=== PATIENT | female | born 1965 | race Caucasian/White ===

== ENCOUNTER 2020-02-09 09:45 | Outpatient (CLI) | payer BC, OTHER, SELFPAY ==
[2020-02-09 10:08] LABS: Add Urine Microscopic? NO; Appearance Urine Clear (Clear); Bilirubin Urine Negative (Negative); Blood Urine Negative (Negative); Color Urine Yellow (Yellow); Glucose Urine UA Negative (Negative); Ketones Urine Negative (Negative); Leukocyte Esterase Ur Negative LEU/UL (Negative); Nitrate Urine Negative (Negative); Protein Urine Negative (Negative); Urobilinogen Urine 0.2 mg/dL (0.2-1.0); pH Urine 6.5 (5.0-8.0)
[2020-02-09 10:11] LABS: Basophils Absolute Auto 0.02 K/mm3 (0.00-0.10); Basophils Percent Auto 0.3 % (0.0-1.0); Eosinophils Absolute Auto 0.11 K/mm3 (0.02-0.50); Eosinophils Percent Auto 1.8 % (1.0-6.0); Hemoglobin 13.8 g/dL (12.0-15.0); Immature Granulocyte Absolute 0.02 K/mm3 (0.00-0.00); Immature Granulocyte Percent A 0.3 % (0.0-0.0); Lymphocytes Absolute Auto 1.49 K/mm3 (1.10-4.50); Lymphocytes Percent Auto 24.8 % (18.0-42.0); Mean Corpuscular HGB Conc 32.9 g/dL (32.0-36.0); Mean Corpuscular Hemoglobin 30.6 pg (27.0-31.0); Mean Corpuscular Volume 93.1 fL (78.0-102.0); Mean Platelet Volume 9.9 fl (9.2-11.8); Monocytes Absolute Auto 0.37 K/mm3 (0.10-0.90); Monocytes Percent Auto 6.2 % (2.0-11.0); Neutrophils Percent Auto 66.6 % (50.0-70.0); Platelet Count Result 187 K/mm3 (150-420); Red Blood Count 4.51 M/mm3 (4.20-5.40); Red Cell Distribution Width 12.4 % (11.6-14.4)
[2020-02-09 11:04] LABS: Alanine Aminotransferase 11 U/L (14-59); Albumin Level 4.4 g/dL (3.4-5.0); Alkaline Phosphatase 67 U/L (46-116); Anion Gap 13 mmol/L (8-16); Aspartate Amino Transferase 25 U/L (15-37); Bilirubin,Total 0.9 mg/dL (0.00-1.00); Blood Urea Nitrogen 20 mg/dL (7-18); Calcium 8.8 mg/dL (8.5-10.1); Carbon Dioxide 29 mmol/L (21-32); Chloride 116 mmol/L (98-108); Cholesterol 201 mg/dL (0-200); Estimated Glomerular Filt Rate 58; Glucose 91 mg/dL (70-99); HDL Direct 87 mg/dL (40-60); LDL Cholesterol Calculated 102 mg/dL (<130); Osmolality Calculated 328 mOsm/kg (285-295); Potassium 4.4 mmol/L (3.5-5.1); Sodium 158 mmol/L (136-145); Thyroid Stimulating Hormone 1.33 uIU/mL (0.36-3.74); Total Protein 7.2 g/dL (6.4-8.2); Triglycerides 61 mg/dL (0-150)
== END 2020-02-09 09:46 | disposition home or self-care (01) ==
PROVIDERS: PCP Internal Medicine; Visit Provider Internal Medicine
DX: Z00.00 Encounter for general adult medical examination without abnormal findings (principal)
CPT/HCPCS: 36415; 80053; 80061; 81003; 84443; 85025

== ENCOUNTER 2020-02-17 09:31 | Outpatient (CLI) | payer BC, OTHER, SELFPAY ==
--- NOTE | ~2020-02-17 | US_ITS ---
EXAMINATION: US pelvic complete w TV DATE: 02/17/2020 12:54 INDICATION: Postmenopausal bleeding Comparison:No prior studies for comparison. TECHNIQUE: Multiple transabdominal and endovaginal sonographic images of the pelvis performed. FINDINGS: The uterus measures 6 x 2.4 x 4.6 cm. The endometrial complex measures 3.5 mm. The right ovary measures 2 x 0.8 x 0.8 cm and the left ovary measures 2.5 x 1.4 x 1 cm. There are sm all follicles in each ovary. There is no free fluid in the pelvis. There are no abnormal masses seen on either side. IMPRESSION: 1. Unremarkable pelvic ultrasound. Reviewed, dictated and finalized at location B.
== END 2020-02-17 09:32 | disposition home or self-care (01) ==
LOC: CHSIMG 09:33
PROVIDERS: PCP Internal Medicine; Visit Provider Internal Medicine
DX: N95.0 Postmenopausal bleeding (principal)
CPT/HCPCS: 76830; 76856

== ENCOUNTER 2020-03-03 12:02 | Outpatient (CLI) | payer BC, OTHER, SELFPAY ==
[2020-03-03 12:26] LABS: Add Urine Microscopic? NO; Appearance Urine Clear (Clear); Bilirubin Urine Negative (Negative); Blood Urine Negative (Negative); Color Urine Yellow (Yellow); Glucose Urine UA Negative (Negative); Ketones Urine Negative (Negative); Leukocyte Esterase Ur Negative (Negative); Nitrate Urine Negative (Negative); Protein Urine Negative (Negative); Specific Grav Ur >= 1.030 (1.010-1.020); Urobilinogen Urine 0.2 mg/dL (0.2-1.0)
[2020-03-03 12:40] LABS: INR 1.2; Partial Thromboplastin Time 31.7 SEC (22.3-31.6); Prothrombin Time 12.6 Seconds (9.64-11.0)
[2020-03-03 14:07] LABS: Alanine Aminotransferase 24 U/L (14-59); Alkaline Phosphatase 72 U/L (46-116); Anion Gap 8 mmol/L (8-16); Aspartate Amino Transferase 24 U/L (15-37); Bilirubin,Total 0.8 mg/dL (0.00-1.00); Blood Urea Nitrogen 20 mg/dL (7-18); Calcium 8.9 mg/dL (8.5-10.1); Carbon Dioxide 27 mmol/L (21-32); Chloride 104 mmol/L (98-108); Estimated Glomerular Filt Rate 59; Glucose 92 mg/dL (70-99); Osmolality Calculated 290 mOsm/kg (285-295); Sodium 139 mmol/L (136-145)
== END 2020-03-03 12:03 | disposition home or self-care (01) ==
LOC: CHSLAB 12:04
PROVIDERS: PCP Internal Medicine; Visit Provider Internal Medicine
DX: E87.0 Hyperosmolality and hypernatremia (principal); T14.8XXA Other injury of unspecified body region, initial encounter
CPT/HCPCS: 36415; 80053; 81003; 85610; 85730

== ENCOUNTER 2020-06-26 08:06 | Outpatient (CLI) | payer BC, OTHER, SELFPAY ==
--- NOTE | ~2020-06-26 | MM_ITS ---
EXAMINATION: MM screening yajaira BI w tay HISTORY: Screening TECHNIQUE: Craniocaudal and mediolateral oblique 3-D tomosynthesis images were obtained and synthetic 2-D images were generated. CAD analysis was submitted and interpreted. COMPARISON: 06/24/2019 BREAST PARENCHYMAL COMPOSITION: The breasts are extremely dense, which lowers the sensitivity of mamm ography. FINDINGS: There is no evidence of suspicious mass, calcification, or architectural distortion to sugg est malignancy in either breast. There has been no suspicious interval change. IMPRESSION: 1. No mammographic evidence of malignancy. 2. Recommend routine screening mammography in one year. BI-RADS Category 1: Negative Reviewed, dictated and finalized at location A. WORKER WIRE FENCE ERECTOR
== END 2020-06-26 08:07 | disposition home or self-care (01) ==
LOC: CHSIMG 08:08
PROVIDERS: PCP Internal Medicine; Visit Provider Obstetrics & Gynecology
DX: Z12.31 Encounter for screening mammogram for malignant neoplasm of breast (principal)
CPT/HCPCS: 77063; 77067

== ENCOUNTER 2020-08-01 08:06 | Outpatient (CLI) | payer BC, OTHER, SELFPAY ==
[2020-08-04 21:12] LABS: Lupus dRVVT 1:1 Mix Interpreta Not Indicated; Lupus dRVVT Confirmation Negative (Negative); Lupus dRVVT Screen 49 sec (<=45); PTT-LA Screen 39 sec (<=40)
[2020-08-05 22:12] LABS: Anti Cardio Antibody IgM <12 MPL (<=12); Anti Cardiolipin Antibody IgA <11 APL (<=11); Anti Cardiolipin Antibody IgG <14 GPL (<=14)
[2020-08-06 08:29] LABS: Reference Lab Test Name FACTOR II ACTIVITY
[2020-08-06 08:30] LABS: Reference Lab Test Result 105
== END 2020-08-01 08:07 | disposition home or self-care (01) ==
LOC: CHSLAB 08:09
PROVIDERS: PCP Internal Medicine; Visit Provider Internal Medicine
DX: D68.9 Coagulation defect, unspecified (principal)
CPT/HCPCS: 36415; 81241; 85210; 85260; 85597; 85613; 85730; 86146; 86147; 86148

== ENCOUNTER 2021-05-15 07:49 | Outpatient (CLI) | payer BC, OTHER, SELFPAY ==
[2021-05-15 08:09] LABS: Basophils Absolute Auto 0.03 K/mm3 (0.00-0.10); Basophils Percent Auto 0.5 % (0.0-1.0); Eosinophils Absolute Auto 0.17 K/mm3 (0.02-0.50); Eosinophils Percent Auto 2.8 % (1.0-6.0); Hematocrit 37.9 % (35.0-49.0); Immature Granulocyte Absolute 0.02 K/mm3 (0.00-0.00); Immature Granulocyte Percent A 0.3 % (0.0-0.0); Lymphocytes Absolute Auto 2.04 K/mm3 (1.10-4.50); Lymphocytes Percent Auto 33.1 % (18.0-42.0); Mean Corpuscular HGB Conc 34.3 g/dL (32.0-36.0); Mean Corpuscular Hemoglobin 30.6 pg (27.0-31.0); Mean Corpuscular Volume 89.2 fL (78.0-102.0); Mean Platelet Volume 9.8 fl (9.2-11.8); Monocytes Percent Auto 6.5 % (2.0-11.0); Neutrophils Absolute Auto 3.5 K/mm3 (1.7-7.2); Neutrophils Percent Auto 56.8 % (50.0-70.0); Platelet Count Result 189 K/mm3 (150-420); Red Blood Count 4.25 M/mm3 (4.20-5.40); Red Cell Distribution Width 11.7 % (11.6-14.4); White Blood Count 6.2 K/mm3 (4.8-10.8)
[2021-05-15 08:14] LABS: Add Urine Microscopic? YES; Appearance Urine Clear (Clear); Bilirubin Urine Negative (Negative); Blood Urine 1+ (Negative); Color Urine Yellow (Yellow); Glucose Urine UA Negative (Negative); Ketones Urine Negative (Negative); Leukocyte Esterase Ur Negative (Negative); Nitrate Urine Negative (Negative); Protein Urine Negative (Negative); Specific Grav Ur >= 1.030 (1.010-1.020); Urobilinogen Urine 0.2 mg/dL (0.2-1.0); pH Urine 5.5 (5.0-8.0)
[2021-05-15 08:19] LABS: Bacteria Urine 1+ /hpf; Mucus Urine Moderate /lpf; RBC Urine 0-2 /hpf (0-2); Squamous Epithelial Cell Urine Moderate /hpf (Few); WBC Urine None seen /hpf (0-3)
[2021-05-15 09:27] LABS: Alanine Aminotransferase 28 U/L (14-59); Albumin Level 3.9 g/dL (3.4-5.0); Alkaline Phosphatase 59 U/L (46-116); Anion Gap 8 mmol/L (8-16); Aspartate Amino Transferase 23 U/L (15-37); Bilirubin,Total 0.8 mg/dL (0.00-1.00); Blood Urea Nitrogen 19 mg/dL (7-18); Calcium 8.9 mg/dL (8.5-10.1); Carbon Dioxide 29 mmol/L (21-32); Chloride 105 mmol/L (98-108); Cholesterol 173 mg/dL (0-200); Estimated Glomerular Filt Rate > 60; Glucose 92 mg/dL (70-99); HDL Direct 73 mg/dL (40-60); LDL Cholesterol Calculated 91 mg/dL (<130); Osmolality Calculated 296 mOsm/kg (285-295); Potassium 3.8 mmol/L (3.5-5.1); Sodium 142 mmol/L (136-145); Thyroid Stimulating Hormone 1.71 uIU/mL (0.36-3.74); Total Protein 6.9 g/dL (6.4-8.2); Triglycerides 45 mg/dL (0-150)
== END 2021-05-15 07:50 | disposition home or self-care (01) ==
LOC: CHSLAB 07:50
PROVIDERS: PCP Internal Medicine; Visit Provider Internal Medicine
DX: Z00.00 Encounter for general adult medical examination without abnormal findings (principal)
CPT/HCPCS: 36415; 80053; 80061; 81001; 84443; 85025

== ENCOUNTER 2021-06-10 07:41 | Outpatient (CLI) | payer BC, OTHER, SELFPAY ==
[2021-06-10 08:35] LABS: CRP < 0.2 mg/dL (0.0-0.9)
== END 2021-06-10 07:42 | disposition home or self-care (01) ==
LOC: CHSLAB 07:45
PROVIDERS: PCP Internal Medicine; Visit Provider Nurse Practitioner Family
DX: R21 Rash and other nonspecific skin eruption (principal); R79.82 Elevated C-reactive protein (CRP)
CPT/HCPCS: 36415; 86038; 86140

== ENCOUNTER 2021-06-19 07:50 | Outpatient (CLI) | payer BC, OTHER, SELFPAY ==
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
== END 2021-06-19 07:51 | disposition home or self-care (01) ==
LOC: CHSLAB 07:53
PROVIDERS: PCP Internal Medicine; Visit Provider Internal Medicine
DX: M54.2 Cervicalgia (principal)
CPT/HCPCS: 72040

== ENCOUNTER 2021-07-02 07:54 | Outpatient (CLI) | payer BC, OTHER, SELFPAY ==
--- NOTE | ~2021-07-02 | MM_ITS ---
EXAMINATION: MM screening yajaira BI w tay HISTORY: Screening TECHNIQUE: Craniocaudal and mediolateral oblique 3-D tomosynthesis images were obtained and synthetic 2-D images were generated. CAD analysis was submitted and interpreted. COMPARISON: Comparison to multiple prior studies sequentially, with oldest reviewed study dated 06/24. BREAST PARENCHYMAL COMPOSITION: The breasts are heterogeneously dense, which may obscure small masses . FINDINGS: There is no evidence of suspicious mass, calcification, or architectural distortion to sugg est malignancy in either breast. There has been no suspicious interval change. IMPRESSION: 1. No mammographic evidence of malignancy. 2. Recommend routine screening mammography in one year. BI-RADS Category 1: Negative Reviewed, dictated and finalized at location A. ASOUND MANAGER
== END 2021-07-02 07:55 | disposition home or self-care (01) ==
LOC: CHSIMG 07:55
PROVIDERS: PCP Internal Medicine; Visit Provider Obstetrics & Gynecology
DX: Z12.31 Encounter for screening mammogram for malignant neoplasm of breast (principal)
CPT/HCPCS: 77063; 77067

== ENCOUNTER 2021-09-14 10:36 | Outpatient (CLI) | payer BC, OTHER, SELFPAY ==
[2021-09-14 10:56] LABS: Basophils Absolute Auto 0.03 K/mm3 (0.00-0.10); Basophils Percent Auto 0.5 % (0.0-1.0); Eosinophils Absolute Auto 0.14 K/mm3 (0.02-0.50); Eosinophils Percent Auto 2.3 % (1.0-6.0); Hematocrit 40.1 % (35.0-49.0); Hemoglobin 12.8 g/dL (12.0-15.0); Immature Granulocyte Absolute 0.02 K/mm3 (0.00-0.00); Immature Granulocyte Percent A 0.3 % (0.0-0.0); Lymphocytes Absolute Auto 1.51 K/mm3 (1.10-4.50); Mean Corpuscular HGB Conc 31.9 g/dL (32.0-36.0); Mean Corpuscular Hemoglobin 29.4 pg (27.0-31.0); Mean Corpuscular Volume 92.2 fL (78.0-102.0); Monocytes Absolute Auto 0.33 K/mm3 (0.10-0.90); Monocytes Percent Auto 5.5 % (2.0-11.0); Neutrophils Percent Auto 66.4 % (50.0-70.0); Platelet Count Result 196 K/mm3 (150-420); Red Blood Count 4.35 M/mm3 (4.20-5.40); Red Cell Distribution Width 11.8 % (11.6-14.4); White Blood Count 6.1 K/mm3 (4.8-10.8)
[2021-09-14 11:09] LABS: INR 1.2; Partial Thromboplastin Time 30.5 SEC (23.90-30.70); Prothrombin Time 12.4 Seconds (9.50-12.10)
[2021-09-14 11:23] LABS: Alanine Aminotransferase 21 U/L (14-59); Alkaline Phosphatase 72 U/L (46-116); Anion Gap 11 mmol/L (8-16); Aspartate Amino Transferase 24 U/L (15-37); Bilirubin,Total 0.5 mg/dL (0.00-1.00); Blood Urea Nitrogen 24 mg/dL (7-18); Calcium 9.1 mg/dL (8.5-10.1); Carbon Dioxide 29 mmol/L (21-32); Chloride 102 mmol/L (98-108); Estimated Glomerular Filt Rate 58; Glucose 85 mg/dL (70-99); Osmolality Calculated 297 mOsm/kg (285-295); Potassium 3.6 mmol/L (3.5-5.1); Sodium 142 mmol/L (136-145); Total Protein 7.1 g/dL (6.4-8.2)
== END 2021-09-14 10:37 | disposition home or self-care (01) ==
LOC: CHSLAB 10:38
PROVIDERS: PCP Internal Medicine; Visit Provider Internal Medicine
DX: D68.9 Coagulation defect, unspecified (principal)
CPT/HCPCS: 36415; 80053; 85025; 85610; 85730

== ENCOUNTER 2022-07-04 07:42 | Outpatient (CLI) | payer BC, OTHER, SELFPAY ==
--- NOTE | ~2022-07-04 | MM_ITS ---
EXAMINATION: MM screening yajaira BI w tay HISTORY: Screening TECHNIQUE: Craniocaudal and mediolateral oblique 3-D tomosynthesis images were obtained and synthetic 2-D images were generated. CAD analysis was submitted and interpreted. COMPARISON: Comparison to multiple prior studies sequentially, with oldest reviewed study dated 06/24. BREAST PARENCHYMAL COMPOSITION: The breasts are extremely dense, which lowers the sensitivity of mamm ography. FINDINGS: There is no evidence of suspicious mass, calcification, or architectural distortion to sugg est malignancy in either breast. There has been no suspicious interval change. IMPRESSION: 1. No mammographic evidence of malignancy. 2. Recommend routine screening mammography in one year. BI-RADS Category 1: Negative Reviewed, dictated and finalized at location A. ICATING MACHINE OPERATOR
== END 2022-07-04 07:43 | disposition home or self-care (01) ==
LOC: CHSIMG 07:44
PROVIDERS: PCP Family Medicine; Visit Provider Obstetrics & Gynecology
DX: Z12.31 Encounter for screening mammogram for malignant neoplasm of breast (principal)
CPT/HCPCS: 77063; 77067

== ENCOUNTER 2022-07-14 14:39 | Outpatient (CLI) | payer BC, OTHER, SELFPAY ==
[2022-07-14 14:53] LABS: Hematocrit 37.2 % (35.0-49.0); Hemoglobin 12.3 g/dL (12.0-15.0); Mean Corpuscular HGB Conc 33.1 g/dL (32.0-36.0); Mean Corpuscular Volume 90.7 fL (78.0-102.0); Platelet Count Result 202 K/mm3 (150-420); Red Cell Distribution Width 12.8 % (11.6-14.4); White Blood Count 6.3 K/mm3 (4.8-10.8)
[2022-07-14 15:19] LABS: Alanine Aminotransferase 22 U/L (14-59); Albumin Level 3.8 g/dL (3.4-5.0); Alkaline Phosphatase 77 U/L (46-116); Anion Gap 6 mmol/L (8-16); Aspartate Amino Transferase 29 U/L (15-37); Bilirubin,Total 0.4 mg/dL (0.00-1.00); Blood Urea Nitrogen 21 mg/dL (7-18); Carbon Dioxide 31 mmol/L (21-32); Chloride 100 mmol/L (98-108); Cholesterol 183 mg/dL (0-200); Estimated Glomerular Filt Rate 58; Glucose 89 mg/dL (70-99); HDL Direct 90 mg/dL (40-60); LDL Cholesterol Calculated 82 mg/dL (<130); Osmolality Calculated 286 mOsm/kg (285-295); Potassium 3.8 mmol/L (3.5-5.1); Sodium 137 mmol/L (136-145); Total Protein 7.3 g/dL (6.4-8.2); Triglycerides 57 mg/dL (0-150)
[2022-07-14 15:27] LABS: Thyroid Stimulating Hormone Reflex 1.36 u/IU/mL (0.36-3.74)
== END 2022-07-14 14:40 | disposition home or self-care (01) ==
LOC: CHSLAB 14:41
PROVIDERS: PCP Family Medicine; Visit Provider Family Medicine
DX: Z00.00 Encounter for general adult medical examination without abnormal findings (principal); E11.9 Type 2 diabetes mellitus without complications
CPT/HCPCS: 36415; 80053; 80061; 84443; 85027

== ENCOUNTER 2023-07-09 11:43 | Outpatient (CLI) | payer BC, OTHER, SELFPAY ==
--- NOTE | ~2023-07-09 | MM_ITS ---
EXAMINATION: MM screening yajaria BI w tay HISTORY: Screening mammogram TECHNIQUE: Craniocaudal and mediolateral oblique 3-D tomosynthesis images were obtained and synthetic 2-D images were generated. CAD analysis was submitted and interpreted. COMPARISON: July 04, 2022, July 02, 2021 bilateral screening mammogram examinations BREAST PARENCHYMAL COMPOSITION: The breasts are extremely dense, which lowers the sensitivity of mamm ography. FINDINGS: There is no evidence of suspicious mass, calcification, or architectural distortion to sugg est malignancy in either breast. There has been no suspicious interval change. IMPRESSION: 1. No mammographic evidence of malignancy. 2. Recommend routine screening mammography in one year. BI-RADS Category 1: Negative Reviewed, dictated and finalized at location A. ONNEL COORDINATOR
== END 2023-07-09 11:44 | disposition home or self-care (01) ==
LOC: CHSIMG 11:44
PROVIDERS: PCP Family Medicine; Visit Provider Obstetrics & Gynecology
DX: Z12.31 Encounter for screening mammogram for malignant neoplasm of breast (principal)
CPT/HCPCS: 77063; 77067

== ENCOUNTER 2023-09-11 09:11 | Outpatient (CLI) | payer BC, OTHER, SELFPAY ==
[2023-09-11 09:48] LABS: Basophils Absolute Auto 0.03 K/mm3 (0.00-0.10); Basophils Percent Auto 0.5 % (0.0-1.0); Eosinophils Percent Auto 1.6 % (1.0-6.0); Hematocrit 39.8 % (35.0-49.0); Hemoglobin 12.8 g/dL (12.0-15.0); Immature Granulocyte Absolute 0.01 K/mm3 (0.00-0.00); Immature Granulocyte Percent A 0.2 % (0.0-0.0); Lymphocytes Absolute Auto 1.55 K/mm3 (1.10-4.50); Lymphocytes Percent Auto 25.5 % (18.0-42.0); Mean Corpuscular HGB Conc 32.2 g/dL (32-36); Mean Corpuscular Hemoglobin 29.2 pg (27.0-31.0); Mean Corpuscular Volume 90.9 fL (78.0-102.0); Mean Platelet Volume 9.5 fl (9.2-11.8); Monocytes Percent Auto 4.9 % (2.0-11.0); Neutrophils Absolute Auto 4.09 K/mm3 (1.70-7.20); Neutrophils Percent Auto 67.3 % (50.0-70.0); Platelet Count Result 203 K/mm3 (150-420); Red Blood Count 4.38 M/mm3 (4.20-5.40); Red Cell Distribution Width 12.3 % (11.6-14.4); White Blood Count 6.1 K/mm3 (4.8-10.8)
[2023-09-11 11:03] LABS: Alanine Aminotransferase 19 U/L (14-59); Albumin Level 4.1 g/dL (3.4-5.0); Alkaline Phosphatase 70 U/L (46-116); Anion Gap 9 mmol/L (4-12); Aspartate Amino Transferase 25 U/L (15-37); Bilirubin,Total 0.7 mg/dL (0.00-1.00); Blood Urea Nitrogen 23 mg/dL (7-18); Calcium 9.3 mg/dL (8.5-10.1); Carbon Dioxide 29 mmol/L (21-32); Chloride 104 mmol/L (98-108); Cholesterol 198 mg/dL (0-200); Estimated Glomerular Filt Rate 56; Glucose 79 mg/dL (70-99); HDL Direct 85 mg/dL (40-60); LDL Cholesterol Calculated 103 mg/dL (<130); Osmolality Calculated 296 mOsm/kg (285-295); Sodium 142 mmol/L (136-145); Total Protein 7.4 g/dL (6.4-8.2); Triglycerides 52 mg/dL (0-150)
[2023-09-11 11:17] LABS: Thyroid Stimulating Hormone Reflex 1.85 u/IU/mL (0.36-3.74)
== END 2023-09-11 09:12 | disposition home or self-care (01) ==
LOC: CHSLAB 09:14
PROVIDERS: PCP Family Medicine; Visit Provider Family Medicine
DX: E03.9 Hypothyroidism, unspecified (principal); Z00.00 Encounter for general adult medical examination without abnormal findings
CPT/HCPCS: 36415; 80053; 80061; 84443; 85025; 86003

== ENCOUNTER 2024-07-13 08:50 | Outpatient (CLI) | payer BC, OTHER, SELFPAY ==
--- NOTE | ~2024-07-13 | MM_ITS ---
EXAMINATION: MM screening yajaira BI w tay HISTORY: Screening TECHNIQUE: Craniocaudal and mediolateral oblique 3-D tomosynthesis images were obtained and synthetic 2-D images were generated. CAD analysis was submitted and interpreted. COMPARISON: Comparison to multiple prior studies sequentially, with oldest reviewed study dated 06/24. BREAST PARENCHYMAL COMPOSITION: Dense: The breasts are extremely dense, which lowers the sensitivity of mammography. FINDINGS: There is no evidence of suspicious mass, calcification, or architectural distortion to sugg est malignancy in either breast. There has been no suspicious interval change. IMPRESSION: 1. No mammographic evidence of malignancy. 2. Recommend routine screening mammography in one year. BI-RADS Category 1: Negative Reviewed, dictated and finalized at location B. RANCE CLAIMS EXAMINER
--- OUTSIDE RECORDS SUMMARY | 2024-07-13 09:27 | XMS_ITS | Encounter Summary ---
Author Organization [facility] Address [address] [place] [address] Care Team Providers Care Boarding House Manager Name Role Phone Dean Hendricks MD Primary Care Provider [phone] Dean Hendricks MD Primary Care Provider [phone] Alberto Smith DO Primary Care Provider Encounter Details Date Type Department Care Team (Late st Contact Info) Description 12/12/2014 Orders Only [facility] [address] [place] [address] Scanning, Provider Social History Tobacco Use Types Packs/Day Years Used Date Smoking Tobacco: Never Assessed Comments Unknown Sex and Gender Information Value Date Recorded Sex Assigned at Not on file Legal Sex Female 7:47 PM REVERSAL PRINT INSPECTOR Gender Identity Female 10/23/2020 8:59 AM CDT Sexual Orientation Not on file documented as of this encounter Plan of Treatment Upcoming Encounters Date Type Department Care Team (Latest Contact Info) Description 07/29/2024 10:00 AM REVERSAL PRINT INSPECTOR Hospital Encounter [address] [address] Nathan Haywood MD [address] [facility] [address] [place] [address] [place] [id number] 07/29/2024 10:00 AM REVERSAL PRINT INSPECTOR - 07/29/2024 10:30 AM REVERSAL PRINT INSPECTOR Surgery [address] [address] Nathan Haywood MD [address] [place] [address] [place] [address] ESOPHAGOGASTRODUODENOSCOPY Scheduled Procedures Name Priority Associated Diagnoses Date/Ti me ESOPHAGOGASTRODUODENOSCOPY Family history- stomach cancer 07/29/2024 10:00 AM REVERSAL PRINT INSPECTOR documented as of this encounter Procedures Procedure Name Priority Date/Time Associated Diagnosis Comments GI - RESULT 12/12/2014 SCAN - RADIOLOGY/IMAGING 12/12/2014 SCAN - PATHOLOGY 12/12/2014 documented in this encounter Results * SCAN - PATHOLOGY (12/12/2014) us Provider Scanning Final Result * SCAN - RADIOLOGY/IMAGING (12/12/2014) Anatomical Region Laterality Modality Other us Provider Scanning Final Result * GI - RESULT (12/12/2014) Anatomical Region Laterality Modality Other us Provider Scanning Final Result documented in this encounter Visit Diagnoses Not on filedocumented in this encounter Additional Health Concerns Infection Onset Date Last Indicated Resolved Time COVID: Suspected 03/19/2022 03/19/2022 03/19/2022 4:35 PM CDT documented as of this encounter Care Teams Boarding House Manager Relationship Specialty Start Date End Date Dean Hendricks MD PCP - General 05/11/18 11/25/20 Dean Hendricks MD PCP - General Internal Medicine 11/26/20 11/12/23 Alberto Smith DO [address] [place] [address] PCP - General Family Medicine 11/13/23 documented as of this encounter
--- OUTSIDE RECORDS SUMMARY | 2024-07-13 09:27 | XMS_ITS | Clinical Summary ---
Author Organization [facility] Medical Office Building B Address [address] [place] [address] Care Team Providers Care Ship Joiner Name Role Phone Alberto Smith Primary Care Provider Allergies No known active allergies Medications tretinoin microspheres (RETIN-A MICRO) 0.1 % gel 1 Active estradioL (ESTRACE) 2 mg tablet 2 Active progesterone (PROMETRIUM) 100 mg capsule 2 Active sertraline (ZOLOFT) 50 mg tablet 4 Active linaCLOtide (Linzess) 145 mcg capsule Take 1 capsule (145 mcg total) by mouth daily 90 capsule 2 4 Active Active Problems Problem Noted Date Diagnosed Date Chronic superficial gastritis without bleeding 0 11/13/2023 Multiple gastric polyps 11/13/2023 Encounter for screening colonoscopy 01/01/2022 Overview (01/01/2022): Added automatically from request for surgery [id number] Slow transit constipation 03/13/2021 Chronic constipation 03/12/2021 Family history- stomach cancer 03/12/2021 Irritable bowel syndrome with constipation 11/30 Bloating 11/30/2020 Dyspepsia 08/28/2020 Generalized postprandial abdominal pain 08/29/19 21 Postprandial abdominal bloating 08/28/2020 Coagulation defect (CMS/HCC) 07/26/2020 Immunizations Name Administration Dates Next Due Influenza, Quadrivalent, Spl it, Preservative Free, Intramuscular 03/17/2019,04/02/2018 Tdap 10/18/2014 Surgical History Surgery Date Site/Laterality Comments TUBAL LIGATION CARPAL TUNNEL RELEASE Bilateral TEMPOROMANDIBULAR JOINT SURGERY COLONOSCOPY 05/02/2022 Family History Medical History Relation Name Comments Stomach cancer Mother certifkathy schwab noted Gastric carcinoma with liver mets-identified as adenocarcinoma by microscopy Relation Name Status Comments Mother (Age 76) Social History Tobacco Use Types Packs/Day Years Used Date Smoking Tobacco: Never Smokeless Tobacco: Never Tobacco Cessation:Counseling Given: Not Answered AUDIT-C Answer Date Recorded Q1: How often do you have a drink containing alc ohol? Never 11/13/2023 Average Number of Drinks Not on file 024 Frequency of Binge Drinking Not on file 10/30 Personal Safety Answer Date Recorded Getting School Help Needed Not on file 06/26 Comments Unknown Sex and Gender Information Value Date Recorded Sex Assigned at Not on file Legal Sex Female 7:47 PM MILK HANDLER Gender Identity Female 10/23/2020 8:59 AM CDT Sexual Orientation Not on file Obstetrics History Last Filed Vital Signs Vital Sign Reading Time Taken Comments Blood Pressure 138/86 11/13/2023 1:03 PM CDT Pulse 103 11/13/2023 1:03 PM CDT Temperature 36.6 C (97.8 F) 05/02/2022 9:49 AM MILK HANDLER Respiratory Rate 16 05/02/2022 9:49 AM MILK HANDLER Oxygen Saturation 99% 11/13/2023 1:03 PM CDT Inhaled Oxygen Concentration - - Weight 57.9 kg (127 lb 11.2 oz) 11/13/2023 1:03 PM CDT Height 167.6 cm (5' 6 ) 11/13/2023 1:03 PM CDT Body Mass Index 20.61 11/13/2023 1:03 PM CDT Plan of Treatment Upcoming Encounters Date Type Department Care Team (Latest Contact Info) Description 07/29/2024 10:00 AM MILK HANDLER Hospital Encounter [facility] [address] [place] [address] Nathan Haywood MD [address] [place] [address] [address] 07/29/2024 10:00 AM MILK HANDLER - 07/29/2024 10:30 AM MILK HANDLER Surgery [facility] [address] [place] [address] Nathan Haywood MD [address] [place] [address] [place] [address] ESOPHAGOGASTRODUODENOSCOPY Scheduled Procedures Name Priority Associated Diagnoses Date/Ti me ESOPHAGOGASTRODUODENOSCOPY Family history- stomach cancer 07/29/2024 10:00 AM MILK HANDLER Health Maintenance Due Date Last Done Comments Breast Cancer Screening-Mammogram 1966 Cervical Cancer Screening 1966 Depression Screening 1966 Hepatitis C Screening 1966 Hepatitis B Screening 1984 Regular Well Visit/Exam 18-64 1984 Zoster Vaccine (1 of 2) 2016 Covid-19 Vaccine ( season) 2024 08/10/2020, 07/20/2020 Influenza Vaccine (#1) 2024 , 03/17/2019, 04/02/2018 DTaP/Tdap/Td Vaccine (2 - Td or Tdap) 10/18/2024 10/18/2014 Colon Cancer Screening-Colonoscopy 05/02/2032 05/02/2022 Colon Cancer Screening-CT Colonography Discontinued 05/02/2022 Colon Cancer Screening-DNA Stool Discontinued 05/02/2022 Colon Cancer Screening-FIT Discontinued 05/02/2022 Colon Cancer Screening-Sigmoidoscopy Discontinued 05/02/2022 Pneumococcal vaccine <65 Aged Out No longer eligible based on patient's age to complete this topic Procedures Procedure Name Priority Date/Time Associated Diagnosis Comments COLONOSCOPY 05/02/2022 8:48 AM MILK HANDLER from Last 3 Months or Most Recently Relevant to Health Maintenance Results * COLONOSCOPY (05/02/2022 8:48 AM MILK HANDLER) Anatomical Region Laterality Modality Other Narrative Procedure Note Nathan Haywood MD - 05/02/2022 8:48 AM CST [facility] Patient Name: Carlita Torres Procedure Date: 05/02/2022 8:48AM Date of : 1965 Admit Type: Outpatient Age: 56 Gender: Female Attending MD: Nathan Haywood M.D. Room: [facility] ENDOSCOPY ROOM 1 Note Status: Finalized Patient Profile: This is a 56 year old female. No family history of colon cancer. Her mother had signet cell carcinomaof the stomach. Procedure: Colonoscopy Indications: Screening for colorectal malignant neoplasm, Thisis the patient's first colonoscopy Referring MD: Dean Hendricks M.D. Providers: Nathan Haywood M.D. Impression: - The entire examined colon is normal. - Small internal hemorrhoids - No specimens collected. Recommendation: - Discharge patient to home. - Repeat colonoscopy in 10 years for screening purposes. Medicines: Monitored Anesthesia Care Complications: No immediate complications. Estimated Blood Loss: Estimated blood loss: none. Procedure: Pre-Anesthesia Assessment: - Prior to the procedure, a History and Physicalwas performed, and patient medications and allergieswere reviewed. The patient's tolerance of previous anesthesia was also reviewed. The risks andbenefits of the procedure and the sedation options and risks were discussed with the patient. All questions were answered, and informed consent was obtained. Prior Anticoagulants: The patient has taken noanticoagulant or antiplatelet agents. ASA Grade Assessment: I - A normal, healthy patient. After reviewing the risksand benefits, the patient was deemed in satisfactory condition to undergo the procedure. The benefits, risks and alternatives of theprocedure and sedation were discussed and informed consentwas obtained. All questions were answered. Please referto the signed informed consent document in the medical record. The scope was passed under direct vision.The Pediatric Colonoscope PCF-H190L [id number] was introduced through the anus and advanced to the the cecum, identified by appendiceal orifice andileocecal valve. The bowel preparation used was Miralax via split dose instruction. The bowel preparation usedwas bisacodyl tablets via split dose instruction. The quality of the bowel preparation was good. Bowelprep was administered using a split dose. Findings: The perianal and digital rectal examinations were normal. The cecum appeared normal. The colon (entire examined portion) appeared normal. No polyps and no mass lesions noted. The rectum appeared normal. Retroflexion in the rectum showed small internal hemorrhoids. Electronically signed by Nathan Haywood M.D. Nathan Haywood M.D. 05/02/2022 10:00:55 AM Number of Addenda: 0 Note Initiated On: 05/02/2022 8:48 AM Procedure Code(s): --- Professional --- 77811, Colonoscopy, flexible; diagnostic, including collection of specimen(s) by brushing or washing, when performed (separateprocedure) Diagnosis Code(s): --- Professional --- Z12.11, Encounter for screening for malignant neoplasm of colon CPT copyright 2020 [employer]. All rights reserved. The codes documented in this report are preliminary and upon copying machine mechanic reviewmay be revised to meet current compliance requirements. Recognized by the [employer] for promoting quality in endoscopy us Nathan Haywood MD ENDOSCOPY PROCEDURES Final Result from Last 3 Months or Most Recently Relevant to Health Maintenance Insurance [facility] [id number] [facility] [id number] [facility] [id number] Advance Directives For more information, please contact: [phone] * Full Code (Latest Code Status on File) Date Activated Date Inactivated Comments 05/02/2022 8:19 AM 05/02/2022 2:43 PM * Full Code Date Activated Date Inactivated Comments 05/02/2022 8:18 AM 05/02/2022 8:19 AM * Full Code Date Activated Date Inactivated Comments 11/02/2020 9:02 AM 11/02/2020 3:27 PM Care Teams Ship Joiner Relationship Specialty Start Date End Date Alberto Smith DO [address] [place] [address] PCP - General Family Medicine 11/13/23
--- OUTSIDE RECORDS SUMMARY | 2024-07-13 09:27 | XMS_ITS | Referral Summary ---
Author Organization [facility] Medical Office Building B Address [address] [place] [address] Care Team Providers Care Marbleizer Name Role Phone Alberto Smith Primary Care [...] (01/01/2022): Added automatically from request for surgery [id number] Slow transit constipation 03/13/2021 Chronic constipation 03/12/2021 Family history- stomach cancer 03/12/2021 Irritable bowel syndrome with constipation 11/30 Bloating 11/30/2020 Dyspepsia 08/28/2020 Generalized postprandial abdominal pain 08/29/19 21 Postprandial abdominal bloating 08/28/2020 Coagulation defect (CMS/HCC) 07/26/2020 Immunizations Name Administration Dates Next Due Influenza, Quadrivalent, Spl it, Preservative Free, Intramuscular 03/17/2019,04/02/2018 Tdap 10/18/2014 Social History Tobacco Use Types Packs/Day Years [...] on file Legal Sex Female 7:47 PM BLUEPRINTING MACHINE OPERATOR Gender Identity Female 10/23/2020 8:59 AM CDT Sexual Orientation Not on file Last Filed Vital Signs Vital Sign Reading Time Taken Comments Blood Pressure 138/86 11/13/2023 1:03 PM CDT Pulse 103 11/13/2023 1:03 PM CDT Temperature 36.6 C (97.8 F) 05/02/2022 9:49 AM BLUEPRINTING MACHINE OPERATOR Respiratory Rate 16 05/02/2022 9:4 9 AM BLUEPRINTING MACHINE OPERATOR Oxygen Saturation 99% 11/13/2023 1:03 PM CDT Inhaled Oxygen Concentration - - Weight 57.9 kg (127 lb 11.2 oz) 11/13/2023 1:03 PM CDT Height 167.6 cm (5' 6 ) 11/13/2023 1:03 PM CDT Body Mass Index 20.61 11/13/2023 1:03 PM CDT Plan of Treatment Upcoming Encounters Date Type Department Care Team (Latest Contact Info) Description 07/29/2024 10:00 AM BLUEPRINTING MACHINE OPERATOR Hospital Encounter [address] [address] Nathan Haywood MD [address] [facility] [address] 07/29/2024 10:00 AM BLUEPRINTING MACHINE OPERATOR - 07/29/2024 10:30 AM BLUEPRINTING MACHINE OPERATOR Surgery [address] [address] Nathan Haywood MD [address] [facility] [place] [address] ESOPHAGOGASTRODUODENOSCOPY Scheduled Procedures Name Priority Associated Diagnoses Date/Ti me ESOPHAGOGASTRODUODENOSCOPY Family history- stomach cancer 07/29/2024 10:00 AM BLUEPRINTING MACHINE OPERATOR Procedures Procedure Name Priority Date/Time Associated Diagnosis Comments COLONOSCOPY 05/02/2022 8:48 AM BLUEPRINTING MACHINE OPERATOR from Last 3 Months or Most Recently Relevant to Health Maintenance Results * COLONOSCOPY (05/02/2022 8:48 AM BLUEPRINTING MACHINE OPERATOR) Anatomical Region Laterality Modality Other Narrative Procedure Note Nathan Haywood MD - 05/02/2022 8:48 AM CST [facility] Patient Name: Carlita Torres Procedure Date: 05/02/2022 8:48AM Date of : 1965 Admit Type: Outpatient Age: 56 Gender: Female Attending MD: Nathan Haywood M.D. Room: [facility] ENDOSCOPY ROOM 1 Note Status: Finalized Patient Profile: This is a 56 year old female. No family history of colon cancer. Her mother had signet cell carcinomaof the stomach. Procedure: Colonoscopy Indications: Screening for colorectal malignant neoplasm, Thisis the patient's first colonoscopy Referring MD: Dean Hendricks M.D. Providers: Ahpedro pablo Haywood M.D. Impression: - The entire examined [...] passed under direct vision.The Pediatric Colonoscope PCF-H190L [id number] was introduced through the anus and advanced [...] 8:48 AM Procedure Code(s): --- Professional --- 71331, Colonoscopy, flexible; diagnostic, including collection of specimen(s) by brushing or washing, when performed (separateprocedure) Diagnosis Code(s): --- Professional --- Z12.11, Encounter for screening for malignant neoplasm of colon CPT copyright 2020 [employer]. All rights reserved. The codes documented in this report are preliminary and upon intelligent systems engineer reviewmay be revised to meet current compliance requirements. Recognized by the [employer] for promoting quality in endoscopy Nathan Haywood MD ENDOSCOPY PROCEDURES Final Result from Last 3 Months or Most Recently Relevant to Health Maintenance Insurance [facility] [id number] [facility] [address] Advance Directives For more information, please contact: [phone] * Full Code (Latest Code Status on File) Date Activated Date Inactivated Comments 05/02/2022 8:19 AM 05/02/2022 2:43 PM * Full Code Date Activated Date Inactivated Comments 05/02/2022 8:18 AM 05/02/2022 8:19 AM * Full Code Date Activated Date Inactivated Comments 11/02/2020 9:02 AM 11/02/2020 3:27 PM Care Teams Marbleizer Relationship Specialty Start Date End Date Alberto Smith DO [address] [place] [address] PCP - General Family Medicine 11/13/23
--- OUTSIDE RECORDS SUMMARY | 2024-07-13 09:27 | XMS_ITS | Clinical Summary ---
Author Organization [facility] Address [facility] [place] [address] Care Team Providers Care Motion Picture Film Examiner Name Role Phone Justyn Davidson MD Primary Care Provider [phone] Social History Tobacco Use Types Packs/Day Years Used Date Smoking Tobacco: Never Assessed Comments Unknown Sex and Gender Information Value Date Recorded Sex Assigned at Not on file Legal Sex Female 12:28 PM SPLIT LEATHER MOSSER Gender Identity Not on file Sexual Orientation Not on file Plan of Treatment Health Maintenance Due Date Last Done Comments Cervical Cancer Screening Pa p Smear (Age 30 to 64) Every 3 Years 1966 Colorectal Cancer Screening Colonoscopy (10 Years) 1966 Annual Physical 1969 Hepatitis C 1984 DTaP, Tdap and Td Vaccines ( 1 - Tdap) 1985 Hepatitis B Vaccines (1 of 3 - 19+ 3-dose series) 1985 Cervical Cancer Screening Pa p with HPV Testing (Age 30 to 64) Every 5 Years 1996 Cervical Cancer Screening with HPV 1996 Mammogram Screening 2006 Zoster Vaccines (1 of 2) 2016 COVID-19 Vaccine (2023-2 5 season) 2024 Influenza Adult (#1) 2024 Meningococcal B Vaccine Aged Out No l onger eligible based on patient's age to complete this topic Meningococcal Vaccine Aged Out No nathen shahana eligible based on patient's age to complete this topic Pneumococcal Vaccine: Pediat rics (0 to 5 Years) and At-Risk Patients (6 to 64 Years) Aged Out No longer eligible b ased on patient's age to complete this topic RSV Immunizations Under 20 Months Aged Out No longer eligible based on patient's age to complete this topic Insurance [facility] [employer] [facility] Care Teams Motion Picture Film Examiner Relationship Specialty [place] [address] [place] [address] PCP - General HEMATOLOGY/ONCOLOGY 07/26/20
--- OUTSIDE RECORDS SUMMARY | 2024-07-13 09:27 | XMS_ITS | Encounter Summary ---
Author Organization [facility] Address [address] [place] [address] Care Team Providers Care Research Support Specialist Name Role Phone Dean Hendricks MD Primary Care Provider [phone] Dean Hendricks MD Primary Care Provider [phone] Alberto Smith DO Primary Care Provider Encounter Details Date Type Department Care Team (Late st Contact Info) Description 04/07/2015 Orders Only [facility] Information Management [address] [place] [address] Scanning, Provider Social History Tobacco Use Types Packs/Day Years Used Date Smoking Tobacco: Never Assessed Comments Unknown Sex and Gender Information Value Date Recorded Sex Assigned at Not on file Legal Sex Female 7:47 PM WARP DOFFER Gender Identity Female 10/23/2020 8:59 AM CDT Sexual Orientation Not on file documented as of this encounter Plan of Treatment Upcoming Encounters Date Type Department Care Team (Latest Contact Info) Description 07/29/2024 10:00 AM WARP DOFFER Hospital Encounter [address] [address] Nathan Haywodo MD [address] [facility] [address] ROSADO [address] [place] [address] 07/29/2024 10:00 AM WARP DOFFER - 07/29/2024 10:30 AM WARP DOFFER Surgery [address] [address] Nathan Haywood MD [address] [place] [address] DR ROSADO [address] [place] [address] ESOPHAGOGASTRODUODENOSCOPY Scheduled Procedures Name Priority Associated Diagnoses Date/Ti me ESOPHAGOGASTRODUODENOSCOPY Family history- stomach cancer 07/29/2024 10:00 AM WARP DOFFER documented as of this encounter Procedures Procedure Name Priority Date/Time Associated Diagnosis Comments SCAN - LABS 04/07/2015 documented in this encounter Results * SCAN - LABS (04/07/2015) us Provider Scanning Final Result documented in this encounter Visit Diagnoses Not on filedocumented in this encounter Additional Health Concerns Infection Onset Date Last Indicated Resolved Time COVID: Suspected 03/19/2022 03/19/2022 03/19/2022 4:35 PM CDT documented as of this encounter Care Teams Research Support Specialist Relationship Specialty Start Date End Date Dean Hendricks MD PCP - General 05/11/18 11/25/20 Dean Hendricks MD PCP - General Internal Medicine 11/26/20 11/12/23 Alberto Smith DO [address] [place] [address] PCP - General Family Medicine 11/13/23 documented as of this encounter
--- OUTSIDE RECORDS SUMMARY | 2024-07-13 09:27 | XMS_ITS | Clinical Summary ---
Author Organization [facility] Address [address] [place] [address] Phone Care Team Providers Care Press Tender Name Role Phone Dean Hendricks MD Primary Care Provider [phone] Allergies No known active allergies Social History Tobacco Use Types Packs/Day Years Used Date Smoking Tobacco: Never Assessed Comments Unknown Sex and Gender Information Value Date Recorded Sex Assigned at Not on file Legal Sex Female 9:37 AM CDT Gender Identity Not on file Sexual Orientation Not on file Plan of Treatment Health Maintenance Due Date Last Done Comments DTAP/TDAP/TD VACCINES (1 - Tdap) 1985 HEPATITIS B VACCINES (1 of 3 - 19+ 3-dose series) 1985 CERVICAL CANCER SCREENING 1996 BREAST CANCER SCREENING 2006 COLORECTAL SCREENING 08/31/2011 Colorectal Cancer Screening 08/31/2011 FIT-DNA Q 3 years 08/31/2011 FIT/FOBT Q 1 year 08/31/2011 Flex Sig/CT Colonography Q 5 years 08/31/2011 ZOSTER VACCINE (1 of 2) 2016 INFLUENZA VACCINE (#1) 2023 PNEUMOCOCCAL VACCINE 0-64 YEARS Aged Out No longer eligible based on patient's age to complete this topic Insurance BCBS FEDERAL resmio O OPEN ACCESS [facility] Address: [address] [place] [address] Care Teams Press Tender Relationship Specialty Start Date End Date Dean Hendricks MD [address] [place] [address] PCP - General 05/22/15
--- OUTSIDE RECORDS SUMMARY | 2024-07-13 09:27 | XMS_ITS | Clinical Summary ---
Author Organization [facility] Address [address] [place] [address] Phone Care Team Providers Care Multiple Tube Winding Machine Operator Name Role Phone Dean Hendricks MD Primary Care Provider Allergies No known active allergies Medications Cyanocobalamin (VITAMIN B 12 PO) Take 3,000 mcg by mouth daily. Active Tretinoin Microsphere Pump 0.1 % Gel 1 Active pantoprazole (PROTONIX) 20 MG Tablet Delayed Response 1 Active dicyclomine (BENTYL) 10 MG Capsule 1 Active estradiol (ESTRACE) 2 MG Tablet 2 Active linaclotide (LINZESS) 290 MCG Capsule Take 290 mcg by mouth. 2 Active senna (SENOKOT) 8.6 MG Tablet Take 2 tablets every other day in the evening when not fully emptying out (chronic constipation) . 1 Active triamcinolone (KENALOG) 0.1 % Cream 1 Active Active Problems Problem Noted Date Diagnosed Date Coagulation defect 07/26/2020 Immunizations Immunization Administration Dates Next Due Covid-19, Mrna, Lnp-s, Pf, 3 0 Mcg/0.3 Ml Dose (AIRSIS) 08/10/2020,07/20/2020 Influenza Vaccine, Quadrivalent, PF 01/23/2021,1 ,04/02/2018 TDAP Vaccine 10/18/2014 Family History Medical History Relation Name Comments Diabetes Father Cancer Mother Hypertension Sister 1 Cancer Sister 2 Relation Name Status Comments Father Mother stomach cancer, early stages of Parkinsons Sister 1 Sister 2 Other Hodgkins Social History Tobacco Use Types Packs/Day Years Used Date Smoking Tobacco: Never Smokeless Tobacco: Never Alcohol Use Standard Drinks/Week Comments Never 0 (1 standard drink = 0.6 oz pur e alcohol) PHQ-2 Answer Date Recorded Total Score - Questions 1-9 0 08/31 Comments No Sex and Gender Information Value Date Recorded Sex Assigned at Not on file 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 Gender Identity Not on file Sexual Orientation Not on file Last Filed Vital Signs Vital Sign Reading Time Taken Comments Blood Pressure 118/80 09/19/2021 10:30 AM CDT Pulse 80 09/19/2021 10:30 AM CDT Temperature 36.2 C (97.1 F) 09/19/2021 10:30 AM CDT Respiratory Rate 18 09/19/2021 10:3 0 AM CDT Oxygen Saturation 99% 09/19/2021 10: 30 AM CDT Inhaled Oxygen Concentration - - Weight 58.9 kg (129 lb 12.8 oz) 022 10:30 AM CDT Height 167.6 cm (5' 6 ) 09/19/2021 10:3 0 AM CDT Body Mass Index 20.95 09/19/2021 10:30 AM CDT Plan of Treatment Health Maintenance Due Date Last Done Comments Hepatitis C Virus (HCV) Screening 1966 Hepatitis B Immunization (1 of 3 - 19+ 3-dose series) 1985 Pap Smear 08/31/1987 Cervical Cancer Screening (CCS) 1996 HPV/Cotest 1996 Colonoscopy 08/31/2011 Colorectal Cancer Screening 08/31/2011 Cologuard 2016 Immunochemical Fecal Occult Blood 2016 Mammogram 2016 Pneumococcal Immunization (5 0+ years) (1 of 1 - PCV) 2016 Zoster Immunization (1 of 2) 2016 Influenza Immunization (#1) 01/31/202412/31, 03/17/2019, 04/02/2018 SARS-COV-2 Immunization ( season) 2024 04/08/2021, 08/10/2020, 07/20/2020 Respiratory Syncytial Virus (RSV) Immunization (Adult) (1 - 1-dose 75+ series) 2041 DTaP/Tdap/Td Immunization Discontinued 10/18/2014 Meningococcal Immunization (ACWY) Aged Out No longer eligible based on patient's age to complete this topic Pneumococcal Immunization Combined Aged Out No longer eligible based on patient's age to complete this topic Rotavirus Immunization Aged Out No lo nger eligible based on patient's age to complete this topic Insurance [facility] Care Teams Multiple Tube Winding Machine Operator Relationship Specialty Start Date End Date Dean Hendricks MD [address] [place] [address] PCP - General Internal Medicine 07/26/20
--- OUTSIDE RECORDS SUMMARY | 2024-07-13 09:27 | XMS_ITS | Encounter Summary ---
Author Organization [facility] Medical [facility] Address [address] [place] [address] Care Team Providers Care Candlemaker Name Role Phone Dean Hendricks MD Primary Care Provider [phone] Dean Hendricks MD Primary Care Provider [phone] Alberto Smith DO Primary Care Provider Encounter Details Date Type Department Care Team (Late st Contact Info) Description 05/18/2015 Orders Only [facility] [place] [place] Health Information Management [address] [place] [address] Scanning, Provider Social History Tobacco Use Types Packs/Day Years Used Date Smoking Tobacco: Never Assessed Comments Unknown Sex and Gender Information Value Date Recorded Sex Assigned at Not on file Legal Sex Female 7:47 PM APPLICATION LEAD Gender Identity Female 10/23/2020 8:59 AM CDT Sexual Orientation Not on file documented as of this encounter Plan of Treatment Upcoming Encounters Date Type Department Care Team (Latest Contact Info) Description 07/29/2024 10:00 AM APPLICATION LEAD Hospital Encounter [address] [address] Nathan Haywood MD [address] [facility] [address] ROSADO [address] [place] [address] 07/29/2024 10:00 AM APPLICATION LEAD - 07/29/2024 10:30 AM APPLICATION LEAD Surgery [address] [address] Nathan Haywood MD [address] [place] [address] DR ROSADO [address] [place] [id number] ESOPHAGOGASTRODUODENOSCOPY Scheduled Procedures Name Priority Associated Diagnoses Date/Ti me ESOPHAGOGASTRODUODENOSCOPY Family history- stomach cancer 07/29/2024 10:00 AM APPLICATION LEAD documented as of this encounter Procedures Procedure Name Priority Date/Time Associated Diagnosis Comments SCAN - RADIOLOGY/IMAGING 05/18/2015 documented in this encounter Results * SCAN - RADIOLOGY/IMAGING (05/18/2015) Anatomical Region Laterality Modality Other us Provider Scanning Final Result documented in this encounter Visit Diagnoses Not on filedocumented in this encounter Additional Health Concerns Infection Onset Date Last Indicated Resolved Time COVID: Suspected 03/19/2022 03/19/2022 03/19/2022 4:35 PM CDT documented as of this encounter Care Teams Candlemaker Relationship Specialty Start Date End Date Dean Hendricks MD PCP - General 05/11/18 11/25/20 Dean Hendricks MD PCP - General Internal Medicine 11/26/20 11/12/23 Alberto Smith DO [address] [place] [address] PCP - General Family Medicine 11/13/23 documented as of this encounter
--- OUTSIDE RECORDS SUMMARY | 2024-07-13 09:27 | XMS_ITS | Encounter Summary ---
Author Organization [facility] Medical Group Address [address] [place] [address] Care Team Providers Care Event Operations Manager Name Role Phone Dean Hendricks MD Primary Care Provider [phone] Dean Hendricks MD Primary Care Provider [phone] Alberto Smith DO Primary Care Provider Encounter Details Date Type Department Care Team (Late st Contact Info) Description 10/22/2010 Orders Only [facility] [place] Health Information Management [address] [place] [address] Scanning, Provider Social History Tobacco Use Types Packs/Day Years Used Date Smoking Tobacco: Never Assessed Comments Unknown Sex and Gender Information Value Date Recorded Sex Assigned at Not on file Legal Sex Female 7:47 PM GYN Gender Identity Female 10/23/2020 8:59 AM CDT Sexual Orientation Not on file documented as of this encounter Plan of Treatment Upcoming Encounters Date Type Department Care Team (Latest Contact Info) Description 07/29/2024 10:00 AM GYN Hospital Encounter [address] [address] Nathan Haywood MD [address] [facility] [address] ROSADO [address] [place] [address] 07/29/2024 10:00 AM GYN - 07/29/2024 10:30 AM GYN Surgery [address] [address] Nathan Haywood MD [address] [place] [address] DR ROSADO [address] [place] [id number] ESOPHAGOGASTRODUODENOSCOPY Scheduled Procedures Name Priority Associated Diagnoses Date/Ti me ESOPHAGOGASTRODUODENOSCOPY Family history- stomach cancer 07/29/2024 10:00 AM GYN documented as of this encounter Procedures Procedure Name Priority Date/Time Associated Diagnosis Comments GI - RESULT 10/22/2010 SCAN - LABS 10/22/2010 documented in this encounter Results * SCAN - LABS (10/22/2010) us Provider Scanning Final Result * GI - RESULT (10/22/2010) Anatomical Region Laterality Modality Other us Provider Scanning Final Result documented in this encounter Visit Diagnoses Not on filedocumented in this encounter Additional Health Concerns Infection Onset Date Last Indicated Resolved Time COVID: Suspected 03/19/2022 03/19/2022 03/19/2022 4:35 PM CDT documented as of this encounter Care Teams Event Operations Manager Relationship Specialty Start Date End Date Dean Hendricks MD PCP - General 05/11/18 11/25/20 Dean Hednricks MD PCP - General Internal Medicine 11/26/20 11/12/23 Alberto Smith DO [facility] [place] [address] PCP - General Family Medicine 11/13/23 documented as of this encounter
== END 2024-07-13 08:51 | disposition home or self-care (01) ==
PROVIDERS: PCP Family Medicine; Visit Provider Obstetrics & Gynecology
DX: Z12.31 Encounter for screening mammogram for malignant neoplasm of breast (principal)
CPT/HCPCS: 77063; 77067

== ENCOUNTER 2024-10-17 14:12 | Outpatient (CLI) | payer BC, OTHER, SELFPAY ==
--- NOTE | ~2024-10-17 | XR_ITS ---
HISTORY: RT knee pain posteriorly, Hx of cysts COMPARISON: None TECHNIQUE: 2 views of the right knee were performed (AP and sunrise view). FINDINGS: No acute or subacute fracture, erosion, lytic or sclerotic lesion. Medial tibiofemoral joint space narrowing is identified. IMPRESSION: Degenerative disease, without acute fracture. Reviewed, dictated and finalized at location A.
--- NOTE | ~2024-10-17 | XR_ITS ---
EXAM: XR knee LT min 4V DATE: 10/17/2024 14:33 HISTORY: LT knee pain posteriorly, Hx of cysts, recent cortisone shot . COMPARISON: None available. FINDINGS: Normal mineralization. No fracture or dislocation. No lytic or blastic lesion. Mild medial joint space narrowing. Trace tricompartmental osteophytosis. No erosion or periosteal change. Soft t issues within normal limits. IMPRESSION: Mild tricompartmental left knee osteoarthritis. Reviewed, dictated and finalized at location K.
--- OUTSIDE RECORDS SUMMARY | 2024-10-17 14:16 | XMS_ITS | Clinical Summary ---
Author Organization [facility] Address [facility] [place] [id number] Care Team Providers Care Highway Research Engineer Name Role Phone Justyn Davidson MD Primary Care Provider Social History Tobacco Use Types Packs/Day Years Used Date Smoking Tobacco: Never Assessed Comments Unknown Sex and Gender Information Value Date Recorded Sex Assigned at Not on file Legal Sex Female 12:28 PM SAND DRIER Gender Identity Not on file Sexual Orientation [...] Screening with HPV 1996 Mammogram Screening 2006 Pneumococcal Vaccine: 50+ Ye ars (1 of 1 - PCV) 2016 Zoster Vaccines (1 of 2) 2016 COVID-19 Vaccine ( - 2023-2 5 season) 2024 Meningococcal B Vaccine Aged Out No l onger eligible based on patient's age to complete this topic Meningococcal Vaccine Aged Out No nathen shahana eligible based on patient's age to complete this topic RSV Immunizations Under 20 Months Aged Out No longer eligible based on patient's age to complete this topic Insurance [facility] Care Teams Highway Research Engineer Relationship Specialty [place] [address] [place] [address] PCP - General HEMATOLOGY/ONCOLOGY 07/26/20
--- OUTSIDE RECORDS SUMMARY | 2024-10-17 14:16 | XMS_ITS | Clinical Summary ---
Author Organization [facility] Address [address] [place] [address] Care Team Providers Care Insurance Analyst Name Role Phone Alberto Smith DO Primary Care Provider Allergies No known active allergies Medications tretinoin microspheres (RETIN-A MICRO) 0.1 % gel 1 Active estradioL (ESTRACE) 2 mg tablet 2 Active progesterone (PROMETRIUM) 100 mg capsule 2 Active sertraline (ZOLOFT) 50 mg tablet 4 Active linaCLOtide (Linzess) 145 mcg capsule Take 1 capsule (145 mcg total) by mouth daily 90 capsule 2 4 Active tacrolimus (PROTOPIC) 0.1 % ointment Apply 0.1 Applications topically as needed 5 Active clobetasoL (TEMOVATE) 0.05 % ointment 5 Active Active Problems Problem Noted Date Diagnosed Date Chronic superficial gastritis without bleeding 0 11/13/2023 Multiple gastric polyps 11/13/2023 Encounter for screening colonoscopy 01/01/2022 Overview (01/01/2022): Added automatically from request for surgery [id number] Slow transit constipation 03/13/2021 Chronic constipation 03/12/2021 Family history- stomach cancer 03/12/2021 Irritable bowel syndrome with constipation 11/30 Bloating 11/30/2020 Dyspepsia 08/28/2020 Generalized postprandial abdominal pain 08/29/19 21 Postprandial abdominal bloating 08/28/2020 Coagulation defect 07/26/2020 Encounters Date Type Department Care Team Description 5 Results Follow-Up [facility] Gastroenterology at [place] [address] [facility] [address] [place] [id number] Nathan Haywood MD Surgical pathology 5 11:07 AM FILING OR REGISTRY CLERK Anesthesia Event [facility] [address] [place] [address] Anthony Garay MD Reynolds, Ethan Emerson, MD 5 10:00 AM FILING OR REGISTRY CLERK - 5 10:30 AM FILING OR REGISTRY CLERK Surgery [facility] [address] [place] [address] Nathan Haywood MD ESOPHAGOGASTRODUODENOSCOPY BIOPSY 5 8:21 AM FILING OR REGISTRY CLERK - 5 12:12 PM FILING OR REGISTRY CLERK Hospital Encounter [facility] [address] [place] [address] Nathan Haywood MD Family history- stomach cancer Discharge Disposition: Discharge to home or self care from Last 3 Months Immunizations Immunization Administration Dates Next Due Influenza, Quadrivalent, Spl it, Preservative Free, Intramuscular 03/17/2019,04/02/2018 Tdap 10/18/2014 Surgical History Surgery Date Site/Laterality Comments TUBAL LIGATION CARPAL TUNNEL RELEASE Bilateral TEMPOROMANDIBULAR JOINT SURGERY COLONOSCOPY 05/02/2022 ESOPHAGOGASTRODUODENOSCOPY 07/29/2024 Family History Medical History Relation Name Comments Stomach cancer Mother certifi josselin noted Gastric carcinoma with liver mets-identified as adenocarcinoma by microscopy Relation Name Status Comments Mother (Age 76) Social History Tobacco Use Types Packs/Day Years Used Date Smoking Tobacco: Never Smokeless Tobacco: Never Tobacco Cessation:Counseling Given: Not Answered AUDIT-C Answer Date Recorded Q1: How often do you have a drink containing alcohol? Never 07/29/2024 Q2: How many drinks containi ng alcohol do you have on a typical day when you are drinking? Patient does not drink 5 Frequency of Binge Drinking Not on file 07/03 Personal Safety Answer Date Recorded Have you ever been in or are you currently in a harmful physical or emotional relationship or is someone making you feel afraid or unsafe? Denies 07/29/2024 Comments Unknown Sex and Gender Information Value Date Recorded Sex Assigned at Not on file Legal Sex Female 7:47 PM FILING OR REGISTRY CLERK Gender Identity Female 10/23/2020 8:59 AM CDT Sexual Orientation Not on file Obstetrics History Last Filed Vital Signs Vital Sign Reading Time Taken Comments Blood Pressure 119/73 07/29/2024 12:03 PM FILING OR REGISTRY CLERK Pulse 73 07/29/2024 12:03 PM FILING OR REGISTRY CLERK Temperature 36.8 C (98.2 F) 07/29/2024 12:03 PM FILING OR REGISTRY CLERK Respiratory Rate 18 07/29/2024 12:03 PM FILING OR REGISTRY CLERK Oxygen Saturation 98% 07/29/2024 12:03 PM FILING OR REGISTRY CLERK Inhaled Oxygen Concentration - - Weight 56.7 kg (125 lb) 07/29/2024 9:01 AM FILING OR REGISTRY CLERK Height 167.6 cm (5' 6 ) 07/29/2024 9:01 AM FILING OR REGISTRY CLERK Body Mass Index 20.18 07/29/2024 9:01 AM FILING OR REGISTRY CLERK Plan of Treatment Health Maintenance Due Date Last Done Comments Breast Cancer Screening-Mammogram 1965 Cervical Cancer Screening 1965 Depression Screening 1966 Hepatitis C Screening 1966 Hepatitis B Screening 1984 Regular Well Visit/Exam 18-64 1984 Zoster Vaccine (1 of 2) 2016 Covid-19 Vaccine (3 - season) 2024 08/10/2020, 07/20/2020 DTaP/Tdap/Td Vaccine (2 - Td or Tdap) 10/18/2024 10/18/2014 Influenza Vaccine (Season Ended) 2025 01/23/2021, 03/17/2019, 04/02/2018 Colon Cancer Screening-Colonoscopy 05/02/2032 05/02/2022 Colon Cancer Screening-CT Colonography Discontinued 05/02/2022 Colon Cancer Screening-DNA Stool Discontinued 05/02/2022 Colon Cancer Screening-FIT Discontinued 05/02/2022 Colon Cancer Screening-Sigmoidoscopy Discontinued 05/02/2022 Pneumococcal vaccine <65 Aged Out No longer eligible based on patient's age to complete this topic Procedures Procedure Name Priority Date/Time Associated Diagnosis Comments SURGICAL PATHOLOGY STAT 07/29/2024 2:53 PM FILING OR REGISTRY CLERK Family history- stomach cancer ESOPHAGOGASTRODUODENOSCOPY BIOPSY 07/29/2024 11:02 AM FILING OR REGISTRY CLERK Family history- stomach cancer EGD 07/29/2024 8:26 AM FILING OR REGISTRY CLERK COLONOSCOPY 05/02/2022 8:48 AM FILING OR REGISTRY CLERK from Last 3 Months or Most Recently Relevant to Health Maintenance Results * Surgical pathology (07/29/2024 2:53 PM FILING OR REGISTRY CLERK) Tissue specimen (specimen) (Gastric/Stomach biopsy) 07/29/2024 11:29 AM FILING OR REGISTRY CLERK Narrative [facility] - 08/03/2024 8:53 AM FILING OR REGISTRY CLERK EPIC results best viewed via link to PDF [facility] Department of Pathology [address] [place] [address] Note to Patients: This report may contain a detailed description of human tissue sent by a health care provider to the laboratory for pathologic evaluation. The content of this report is essential for diagnosis and may provide important critical findings. This information may be unfamiliar to patients to review without a medical professional present. It is advised that the patient review this report in the presence of a health care provider who can answer questions and explain the details. Final Report Patient Name: TRINITY TORRES Address: [address] [place] [address]- Gender: F : 1965 (Age: 58) Service: Gastro Location: [facility] Hospital #: [id number] Patient Type: [facility] Taken: 07/29/2024 Received: 07/29/2024 Accessioned: 07/29/2024 Reported: 08/03/2024 Physician(s):Dr. Nathan Haywood M.D. Diagnosis: Gastric, biopsy: - Minimal chronic inactive inflammation. - No evidence of intestinal metaplasia, dysplasia, or malignancy. - Negative Helicobacter immunostain. Rell Bonilla MD Report Electronically Reviewed and Signed Out By Rell Bonilla MD 08/03/2024 08:53:03 Specimen(s) Received: A: Gastric biopsies Microscopic Description: Microscopic examination shows minimal chronic inactive inflammation to include two lymphoid aggregates. There is no evidence of intestinal metaplasia, dysplasia, or malignancy. No definitive Helicobacter organisms are identified on routine H&E staining. A Helicobacter immunostain is performed with appropriately reactive controls on block A1 and is negative. Clinical History: Family history - stomach cancer. EGD. Gross Description: The specimen is submitted in a single formalin filled container labeled TRINITY BENOITRDON and gastric biopsies . It is multiple fragments of peraza tissue between 1 and 2 mm. All in one cassette. Monica Mullins R.N., P.[place]./Cami Navarro M.D. REPORT IMAGES AND SCANNED DOCUMENTS, IF INCLUDED, ONLY VIEWABLE IN PDF VERSION OF REPORT The performance characteristics of some immunohistochemical stains, fluorescence in-situ hybridization tests and immunophenotyping by flow cytometry cited in this report (if any) were determined by the Surgical Pathology Department at [facility] as part of an ongoing director supplier quality program and in compliance with federally mandated regulations drawn from the Clinical Laboratory Improvement Act of 1988 (CLIA '88). Some of these tests rely on the use of analyte specific reagents and are subject to specific labeling requirements by the US Food and Drug Administration. Such diagnostic tests may only be performed in a facility that is certified by the Department of Health and Human Services as a high complexity laboratory under CLIA '88. The FDA has determined that such clearance or approval is not necessary. This test is used for clinical purposes. It should not be regarded as investigational or for research. Nevertheless, federal rules concerning the medical use of analyte specific reagents require that the following disclaimer be attached to the report: This test was developed and its performance characteristics determined by the Surgical Pathology Department [facility]. It has not been cleared or approved by the U. S. Food and Drug Administration. Note for decalcified specimens: This assay has not been validated on decalcified tissues. Results should be interpreted with caution given the possibility of false negativity on decalcified specimens us Nathan Haywood MD LAB PATHOLOGY ORDERABLES F inal Result PATHOLOGY [facility] (ENGLISH) [address] [place] [address] * EGD (07/29/2024 8:26 AM FILING OR REGISTRY CLERK) Anatomical Region Laterality Modality Other Narrative Procedure Note Nathan Haywood MD - 07/29/2024 8:26 AM CST [facility] Patient Name: Trinity Torres Procedure Date: 07/29/2024 8:26AM Date of : 1965 Admit Type: Outpatient Age: 58 Gender: Female Attending MD: Nathan Haywood M.D. [facility] 1 Note Status: Finalized Patient Profile: This is a 58 year old female. Complaint of chronic dyspepsia. Her mother had signet ring cell type of gastric cancer found on autopsy. Procedure: Upper GI endoscopy Indications: Dyspepsia Referring MD: Alberto Smith D.O. Providers: Nathan Haywood M.D. Impression: - Normal examined duodenum. - Normal stomach. Biopsied. - Normal esophagus. Recommendation: - Continue present medications. - Await pathology results. - Repeat upper endoscopy in 3 years forsurveillance. Medicines: Monitored Anesthesia Care Complications: No immediate [...] noanticoagulant or antiplatelet agents. ASA Grade Assessment: Per anesthesia note and evaluation. After reviewing the risks and benefits, the patient was deemed in satisfactory condition to undergo the procedure. The benefits, risks, and alternatives to theprocedure and sedation were discussed and informed consentwas obtained. The scope was passed under direct vision. The Endoscope GIF-H190 [id number] was introduced through the mouth, and advanced to the second partof duodenum. The upper GI endoscopy was accomplished without difficulty. The patient tolerated the procedure well. Findings: The examined duodenum was normal. The entire examined stomach was normal. Retroflexion stomach in the gastric fundus and cardia were normal. Surveillance biopsies were performed from the gastric antrum and body and fundus. The examined esophagus was normal. The GE junction was normal at 40cm Electronically signed by Nathan Haywood M.D. Nathan Haywood M.D. 07/29/2024 11:44:12 AM Number of Addenda: 0 Note Initiated On: 07/29/2024 8:26 AM Procedure Code(s): --- Professional --- 35023, Esophagogastroduodenoscopy, flexible, transoral; with biopsy, single or multiple Diagnosis Code(s): --- Professional --- R10.13, Epigastric pain CPT copyright 2020 [place]. All rights reserved. The codes documented in this report are preliminary and upon winding department supervisor reviewmay be revised to meet current compliance requirements. Recognized by the [place] [employer] for promoting quality in endoscopy us Nathan Haywood MD ENDOSCOPY PROCEDURES Final Result * COLONOSCOPY (05/02/2022 8:48 AM FILING OR REGISTRY CLERK) Anatomical Region Laterality Modality Other Narrative Procedure Note Nathan Haywood MD - 05/02/2022 8:48 AM CST [facility] Patient Name: Trinity Torres Procedure Date: 05/02/2022 8:48AM Date of : 1965 Admit Type: Outpatient Age: 56 Gender: Female Attending MD: Nathan Haywood M.D. [facility]: [facility] 1 Note Status: Finalized Patient [...] passed under direct vision.The Pediatric Colonoscope [id number]-[id number] was introduced through the anus and advanced [...] 8:48 AM Procedure Code(s): --- Professional --- 85494, Colonoscopy, flexible; diagnostic, including collection of specimen(s) by brushing or washing, when performed (separateprocedure) Diagnosis Code(s): --- Professional --- Z12.11, Encounter for screening for malignant neoplasm of colon CPT copyright 2020 [place]. All rights reserved. The codes documented in this report are preliminary and upon winding department supervisor reviewmay be revised to meet current compliance requirements. Recognized by the [place] [employer] for promoting quality in endoscopy Nathan Haywood MD ENDOSCOPY PROCEDURES Final Result from Last 3 Months or Most Recently Relevant to Health Maintenance Insurance [employer] [facility] [id number] [place] [employer] [facility] [id number] [facility] [id number] Advance Directives For more information, please contact: [phone] * Full Code (Latest Code Status on File) Date Activated Date Inactivated Comments 07/29/2024 8:54 AM 07/29/2024 4:30 PM * Full Code Date Activated Date Inactivated Comments 07/29/2024 8:54 AM 07/29/2024 8:54 AM * Full Code Date Activated Date Inactivated Comments 05/02/2022 8:19 AM 05/02/2022 2:43 PM * Full Code Date Activated Date Inactivated Comments 05/02/2022 8:18 AM 05/02/2022 8:19 AM * Full Code Date Activated Date Inactivated Comments 11/02/2020 9:02 AM 11/02/2020 3:27 PM Care Teams Insurance Analyst Relationship Specialty Start Date End Date Alberto Smith DO [address] [place] [address] PCP - General Family Medicine 11/13/23
--- OUTSIDE RECORDS SUMMARY | 2024-10-17 14:16 | XMS_ITS | Encounter Summary ---
Author Organization [facility] Address [address] [place] [address] Care Team Providers Care Commercial Designer Name Role Phone Dean Hendricks MD Primary Care Provider [phone] Dean Hendricks MD Primary Care Provider [phone] Alberto Smith DO Primary Care Provider Encounter Details Date Type Department Care Team (Late st Contact Info) Description 10/22/2010 Orders Only [facility] Information Management [address] [place] [address] Scanning, Provider Social History Tobacco Use Types Packs/Day Years Used Date Smoking Tobacco: Never Assessed Comments Unknown Sex and Gender Information Value Date Recorded Sex Assigned at Not on file Legal Sex Female 7:47 PM MORTGAGE LOAN SPECIALIST Gender Identity Female 10/23/2020 8:59 AM CDT Sexual Orientation Not on file documented as of this encounter Plan of Treatment Not on file documented as of this encounter Procedures Procedure [...] documented as of this encounter Care Teams Commercial Designer Relationship Specialty Start Date End Date Dean Hendricks MD PCP - General 05/11/18 11/25/20 Dean Hendricks MD PCP - General Internal Medicine 11/26/20 11/12/23 Alberto Smith DO [address] [place] [address] PCP - General Family Medicine 11/13/23 documented as of this encounter
--- OUTSIDE RECORDS SUMMARY | 2024-10-17 14:16 | XMS_ITS | Clinical Summary ---
Author Organization [facility] Address [address] [place] [address] Phone Care Team Providers Care Offset Proof Press Operator Name Role Phone Dean Hendricks MD Primary Care Provider [phone] Allergies No known active allergies Social History [...] (1 of 3 - 19+ 3-dose series) 06/1985 HPV/Cotest (21-29) 08/31/1987 CERVICAL CANCER SCREENING 1996 HPV/Cotest (30-65) 1996 PAP SMEAR 1996 BREAST CANCER SCREENING 2006 COLORECTAL SCREENING 08/31/2011 Colorectal Cancer Screening 08/31/2011 FIT-DNA Q 3 years 08/31/2011 FIT/FOBT Q 1 year 08/31/2011 Flex Sig/CT Colonography Q 5 years 08/31/2011 ZOSTER VACCINE (1 of 2) 2016 INFLUENZA VACCINE (#1) 2023 Insurance [employer] [facility]ESS Care Teams Offset Proof Press Operator Relationship Specialty Start Date End Date Dean Hendricks MD [address] [place] [address] PCP - General 05/22/15
--- OUTSIDE RECORDS SUMMARY | 2024-10-17 14:16 | XMS_ITS | Encounter Summary ---
Author Organization [facility] Address [address] [place] [address] Care Team Providers Care Asbestos Remover Name Role Phone Dean Hendricks MD Primary Care Provider Dean Hendricks MD Primary Care Provider [phone] Alberto Smith DO Primary Care Provider Encounter Details Date Type Department Care Team (Late st Contact Info) Description 05/18/2015 Orders Only [facility] [place] Health Information Management [address] [place] [address] Scanning, Provider Social History Tobacco Use Types Packs/Day Years Used Date Smoking Tobacco: Never Assessed Comments Unknown Sex and Gender Information Value Date Recorded Sex Assigned at Not on file Legal Sex Female 7:47 PM EQUIPMENT OPERATOR/LABORER Gender Identity Female 10/23/2020 8:59 AM CDT [...] documented as of this encounter Care Teams Asbestos Remover Relationship Specialty Start Date End Date Dean Hendricks MD PCP - General 05/11/18 11/25/20 Dean Hendricks MD PCP - General Internal Medicine 11/26/20 11/12/23 Alberto Smith DO [facility] [address] [place], [place] [id number] PCP - General Family Medicine 11/13/23 documented as of this encounter
--- OUTSIDE RECORDS SUMMARY | 2024-10-17 14:16 | XMS_ITS | Referral Summary ---
Author Organization [facility] B Address [address] [place] [address] Care Team Providers Care Fuel Cell Assembler Name Role Phone Alberto Smith DO Primary Care Provider Encounters Date Type Department Care Team Description 5 Results Follow-Up [facility] Gastroenterology at [address] [place] [address] Nathna Haywood MD Surgical pathology 5 11:07 AM SUPERVISOR WHEEL SHOP Anesthesia Event [address] [address] Anthony Garay MD Reynolds, Ethan Emerson, MD 5 10:00 AM SUPERVISOR WHEEL SHOP - 5 10:30 AM SUPERVISOR WHEEL SHOP Surgery [address] [address] Nathan Haywood MD ESOPHAGOGASTRODUODENOSCOPY BIOPSY 5 8:21 AM SUPERVISOR WHEEL SHOP - 5 12:12 PM SUPERVISOR WHEEL SHOP Hospital Encounter [address] [address] Nathan Haywood MD Family history- stomach cancer Discharge Disposition: Discharge to home or self care from Last 3 Months Allergies No known active allergies Medications tretinoin [...] (01/01/2022): Added automatically from request for surgery [id number] Slow transit constipation 03/13/2021 Chronic constipation 03/12/2021 Family history- stomach cancer 03/12/2021 Irritable bowel syndrome with constipation 11/30 Bloating 11/30/2020 Dyspepsia 08/28/2020 Generalized postprandial abdominal pain 08/29/19 21 Postprandial abdominal bloating 08/28/2020 Coagulation defect 07/26/2020 Immunizations Immunization Administration Dates Next Due Influenza, [...] you are drinking? Patient does not drink Frequency of Binge Drinking Not on file 07/03 Personal Safety Answer Date Recorded Have you ever been in or are you currently in a harmful physical or emotional relationship or is someone making you feel afraid or unsafe? Denies 07/29/2024 Comments Unknown Sex and Gender Information Value Date Recorded Sex Assigned at Not on file Legal Sex Female 7:47 PM SUPERVISOR WHEEL SHOP Gender Identity Female 10/23/2020 8:59 AM CDT Sexual Orientation Not on file Last Filed Vital Signs Vital Sign Reading Time Taken Comments Blood Pressure 119/73 07/29/2024 12:03 PM SUPERVISOR WHEEL SHOP Pulse 73 07/29/2024 12:03 PM SUPERVISOR WHEEL SHOP Temperature 36.8 C (98.2 F) 07/29/2024 12:03 PM SUPERVISOR WHEEL SHOP Respiratory Rate 18 07/29/2024 12:03 PM SUPERVISOR WHEEL SHOP Oxygen Saturation 98% 07/29/2024 12:03 PM SUPERVISOR WHEEL SHOP Inhaled Oxygen Concentration - - Weight 56.7 kg (125 lb) 07/29/2024 9:01 AM SUPERVISOR WHEEL SHOP Height 167.6 cm (5' 6 ) 07/29/2024 9:01 AM SUPERVISOR WHEEL SHOP Body Mass Index 20.18 07/29/2024 9:01 AM SUPERVISOR WHEEL SHOP Plan of Treatment Not on file Procedures Procedure Name Priority Date/Time Associated Diagnosis Comments SURGICAL PATHOLOGY STAT 07/29/2024 2:53 PM SUPERVISOR WHEEL SHOP Family history- stomach cancer ESOPHAGOGASTRODUODENOSCOPY BIOPSY 07/29/2024 11:02 AM SUPERVISOR WHEEL SHOP Family history- stomach cancer EGD 07/29/2024 8:26 AM SUPERVISOR WHEEL SHOP COLONOSCOPY 05/02/2022 8:48 AM SUPERVISOR WHEEL SHOP from Last 3 Months or Most Recently Relevant to Health Maintenance Results * Surgical pathology (07/29/2024 2:53 PM SUPERVISOR WHEEL SHOP) Tissue specimen (specimen) (Gastric/Stomach biopsy) 07/29/2024 11:29 AM SUPERVISOR WHEEL SHOP Narrative PATHOLOGY [facility] (PEDRO) - 08/03/2024 8:53 AM SUPERVISOR WHEEL SHOP EPIC results best viewed via link to PDF [facility] Department of Pathology [address] [place] [id number] Note to Patients: This report may contain [...] explain the details. Final Report Patient Name: CARLITA TORRES Address: [address] [place] [address], [place] [address]- Gender: F : 1965 (Age: 58) Service: Gastro Location: [facility] Hospital #: [id number] Patient Type: [facility] Taken: 07/29/2024 Received: 07/29/2024 Accessioned: 07/29/2024 [...] in a single formalin filled container labeled CARLITA CASTIGLIONEGORDON and gastric biopsies . It is multiple fragments of peraza tissue between 1 and 2 mm. All in one cassette. Monica Mullins R.N., P.A./Cami Navarro M.D. REPORT IMAGES AND SCANNED DOCUMENTS, IF INCLUDED, ONLY VIEWABLE IN PDF VERSION OF REPORT The performance characteristics of some immunohistochemical stains, fluorescence in-situ hybridization tests and immunophenotyping by flow cytometry cited in this report (if any) were determined by the Surgical Pathology Department at [facility] as part of an ongoing principal quality engineer program and in compliance with federally mandated [...] characteristics determined by the Surgical Pathology Department [facility]. It has not been cleared or approved by the U. S. Food and Drug Administration. Note for decalcified specimens: This assay has not been validated on decalcified tissues. Results should be interpreted with caution given the possibility of false negativity on decalcified specimens us Nathan Haywood MD LAB PATHOLOGY ORDERABLES F inal Result PATHOLOGY [facility] [address] [place] [address] * EGD (07/29/2024 8:26 AM SUPERVISOR WHEEL SHOP) Anatomical Region Laterality Modality Other Narrative Procedure Note Nathan Haywood MD - 07/29/2024 8:[address] [facility] Patient Name: Carlita Torres Procedure Date: 07/29/2024 8:26AM Date of : 1965 Admit Type: Outpatient Age: 58 Gender: Female Attending MD: Nathan Haywood M.D. Room: [facility] ENDOSCOPY ROOM 1 Note Status: [...] - Repeat upper endoscopy in [address] [facility]. Medicines: Monitored Anesthesia Care Complications: No immediate [...] passed under direct vision. The Endoscope [id number] was introduced through the mouth, and advanced [...] 8:26 AM Procedure Code(s): --- Professional --- 90775, Esophagogastroduodenoscopy, flexible, transoral; with biopsy, single or multiple Diagnosis Code(s): --- Professional --- R10.13, Epigastric pain CPT copyright 2020 [employer]. All rights reserved. The codes documented in this report are preliminary and upon level vial marker reviewmay be revised to meet current compliance requirements. Recognized by the [place] [employer] for promoting quality in endoscopy us Nathan Haywood MD ENDOSCOPY PROCEDURES Final Result * COLONOSCOPY (05/02/2022 8:48 AM SUPERVISOR WHEEL SHOP) Anatomical Region Laterality Modality Other Narrative Procedure Note Nathan Haywood MD - 05/02/2022 8:48 AM CST [facility] Patient Name: Carlita Torres Procedure Date: 05/02/2022 8:48AM Date of : 1965 Admit Type: Outpatient Age: 56 Gender: Female Attending MD: Nathan Haywood M.D. Room: [facility] ENDOSCOPY ROOM 1 Note Status: [...] passed under direct vision.The Pediatric Colonoscope [id number] was introduced through the anus and advanced [...] 8:48 AM Procedure Code(s): --- Professional --- 33649, Colonoscopy, flexible; diagnostic, including collection of specimen(s) by brushing or washing, when performed (separateprocedure) Diagnosis Code(s): --- Professional --- Z12.11, Encounter for screening for malignant neoplasm of colon CPT copyright 2020 [employer]. All rights reserved. The codes documented in this report are preliminary and upon level vial marker reviewmay be revised to meet current compliance requirements. Recognized by the [employer] for promoting quality in endoscopy Nathan Haywood MD ENDOSCOPY PROCEDURES Final Result from Last 3 Months or Most Recently Relevant to Health Maintenance Insurance [employer] [facility] [id number] Member Subscriber Plan / Payer (Ef fective 2020-Present) Name:BOONE ROSEN Member ID:[id number] Relation to Subscriber:Self Name:Carlita Torres Subscriber ID:[id number] Payer ID:[id number] Type:HEALTHLINK HMO/PPO Address: [address] [place] [id number] [facility] [id number] Member Subscriber Plan / Payer (Ef fective 2020-Present) Name:Carlita Torres Member ID:[id number] Relation to Subscriber:Self Name:Carlita Torres Subscriber ID:[id number] Payer ID:[id number] Type:HEALTHLINK HMO/PPO Address: [address] [facility] [id number] Advance Directives For more information, please contact: [phone] * Full Code (Latest Code Status on [...] 9:02 AM 11/02/2020 3:27 PM Care Teams Fuel Cell Assembler Relationship Specialty Start Date End Date Alberto Smith DO [address] [place] [address] PCP - General Family Medicine 11/13/23
--- OUTSIDE RECORDS SUMMARY | 2024-10-17 14:16 | XMS_ITS | Encounter Summary ---
Author Organization [facility] Address [address] [place] [address] Care Team Providers Care Dress Marker Name Role Phone Dean Hendricks MD Primary Care Provider [phone] Dean Hendricks MD Primary Care Provider [phone] Alberto Smith DO Primary Care Provider Encounter Details Date Type Department Care Team (Late st Contact Info) Description 12/12/2014 Orders Only [facility] Health Information Management [address] [place] [address] Scanning, Provider Social History Tobacco Use Types Packs/Day Years Used Date Smoking Tobacco: Never Assessed Comments Unknown Sex and Gender Information Value Date Recorded Sex Assigned at Not on file Legal Sex Female 7:47 PM MANUFACTURING ENGINEERING PROFESSOR Gender Identity Female 10/23/2020 8:59 AM CDT [...] documented as of this encounter Care Teams Dress Marker Relationship Specialty Start Date End Date Dean Hendricks MD PCP - General 05/11/18 11/25/20 Dean Hendricks MD PCP - General Internal Medicine 11/26/20 11/12/23 Alberto Smith DO [address] [place] [address] PCP - General Family Medicine 11/13/23 documented as of this encounter
--- OUTSIDE RECORDS SUMMARY | 2024-10-17 14:16 | XMS_ITS | Clinical Summary ---
Author Organization [facility] Address [address] [place] [address] Phone Care Team Providers Care Director Radio News Name Role Phone Dean Hendricks MD Primary Care Provider [phone] Allergies No known active allergies Medications Cyanocobalamin [...] Lnp-s, Pf, 3 0 Mcg/0.3 Ml Dose ([employer]) 08/10/2020,07/20/2020 Influenza Vaccine, Quadrivalent, PF 01/23/2021,1 ,04/02/2018 [...] on file Legal Sex Female 12:46 PM PUBLIC ADDRESS ANNOUNCER Gender Identity Not on file Sexual Orientation [...] of 3 - 19+ 3-dose series) 1985 Colonoscopy 08/31/2011 Colorectal Cancer Screening 08/31/2011 Cologuard 2016 Immunochemical Fecal Occult Blood 2016 Pneumococcal Immunization (5 0+ years) (1 of 1 - PCV) 2016 Zoster Immunization (1 of 2) 2016 Influenza Immunization (#1) 01/31/202412/31, 03/17/2019, 04/02/2018 SARS-COV-2 Immunization (2023- season) 2024 04/08/2021, 08/10/2020, 07/20/2020 Respiratory Syncytial Virus (RSV) Immunization (Adult) (1 - 1-dose 75+ series) 2041 DTaP/Tdap/Td Immunization Discontinued 10/18/2014 Meningococcal Immunization (ACWY) Aged Out No longer eligible based on patient's age to complete this topic Rotavirus Immunization Aged Out No lo nger eligible based on patient's age to complete this topic Insurance [facility] Care Teams Director Radio News Relationship Specialty Start Date End Date Dean Hendricks MD [address] [place] [address] PCP - General Internal Medicine 07/26/20
--- OUTSIDE RECORDS SUMMARY | 2024-10-17 14:16 | XMS_ITS | Encounter Summary ---
Author Organization [facility] Address [address] [place] [address] Care Team Providers Care Oil Rig Driller Name Role Phone Dean Hendricks MD Primary Care Provider [phone] Dean Hendricks MD Primary Care Provider Alberto Smith DO Primary Care Provider Encounter Details Date Type Department Care Team (Late st Contact Info) Description 04/07/2015 Orders Only [facility] Information Management [address] [place] [address] Scanning, Provider Social History Tobacco Use Types Packs/Day Years Used Date Smoking Tobacco: Never Assessed Comments Unknown Sex and Gender Information Value Date Recorded Sex Assigned at Not on file Legal Sex Female 7:47 PM ACCOUNTING RECONCILIATION CLERK Gender Identity Female 10/23/2020 8:59 AM [...] documented as of this encounter Care Teams Oil Rig Driller Relationship Specialty Start Date End Date Dean Hendricks MD PCP - General 05/11/18 11/25/20 Dean Hendricks MD PCP - General Internal Medicine 11/26/20 11/12/23 Alberto Smith DO [address] [place] [address] PCP - General Family Medicine 11/13/23 documented as of this encounter
== END 2024-10-17 14:13 | disposition home or self-care (01) ==
LOC: CHSIMG 14:14
PROVIDERS: PCP Family Medicine; Visit Provider Orthopaedic Surgery
DX: M25.561 Pain in right knee (principal); M25.562 Pain in left knee; M17.12 Unilateral primary osteoarthritis, left knee
CPT/HCPCS: 73564